=== PATIENT | female | born 1975 | race Caucasian/White ===

== ENCOUNTER 2021-02-07 18:17 | Emergency (ER) | payer MEDICAID ==
[~2021-02-07] VITALS: Ht 154.9 cm; Wt 55.0 kg
--- NOTE | 2021-02-07 18:36 | NUR ---
[facility] per [facility]vin pt making statements of SI/SA, currently placed on hold until further eval.
[2021-02-07 18:43] VITALS: BP 109/73
--- NOTE | 2021-02-07 18:44 | NUR ---
pt has disorganized thoughts but denies SI/SA upon assessment. vss, nadn, secutiry precautions in place, sitter at bedside.
--- NOTE | 2021-02-07 19:57 | NUR ---
PATIENT CLEARED FOR DISCHARGE. VERBALIZED UNDERSTANDING OF SELF CARE AND FOLLOW UP CARE AT HOME. VERBALIZED UNDERSTANDING WITH PRESCRIPTIONS. PATIENT AMBULATORY TO DISCHARGE WITHOUT COMPLICATIONS WITH BELONGINGS. NO NOTED ACUTE DISTRESS, VSS.
== END 2021-02-07 20:09 | disposition home or self-care (01) ==
LOC: EDBD 18:17 → ED 20:00
DX: F28 Other psychotic disorder not due to a substance or known physiological condition (principal); F22 Delusional disorders
CPT/HCPCS: 36415; 84703; 99283